=== PATIENT | female | born 1935 | race Caucasian/White ===

== ENCOUNTER 2017-10-29 11:19 | Outpatient (CLI) | payer MEDICARE, OTHER | END 2017-10-29 11:20 | disposition home or self-care (01) | LOC: BICMAMMO 11:19 | PROVIDERS: ATTEND Obstetrics & Gynecology | DX: Z12.31 Encounter for screening mammogram for malignant neoplasm of breast (principal); Z80.3 Family history of malignant neoplasm of breast | CPT/HCPCS: 77063; 77067 ==

== ENCOUNTER 2018-11-04 13:35 | Outpatient (CLI) | payer MEDICARE, OTHER ==
--- NOTE | 2018-11-04 14:25 | MMO ---
Bilateral MAMMO Bilat Diag [facility]. CLINICAL HISTORY: Patient is 83 years old and is seen for diagnostic exam and lump or thickening in the outer region of the left breast. The patient has the following family history of breast cancer: 3 sisters. The patient has no personal history of cancer. The patient has a history of right Excisional Biopsy at age 61 - benign. VIEWS: The views performed were: bilateral craniocaudal with tomosynthesis; bilateral mediolateral oblique with tomosynthesis; bilateral mediolateral with tomosynthesis; and left exaggerated craniocaudal. FILMS COMPARED: The present examination has been compared to prior imaging studies performed at [facility] on 11/28/2015, 10/26/2016, 10/29/2017 and 11/04/2018. MAMMOGRAM FINDINGS: There are scattered fibroglandular densities. There is no radiographic abnormality in the region of the palpable abnormality in the upper-outer region of the left breast. No sonographic abnormality is seen in the region of palpable abnormality. There are no suspicious masses, suspicious calcifications, or new areas of architectural distortion. IMPRESSION: THERE IS NO MAMMOGRAPHIC EVIDENCE OF MALIGNANCY. NO MAMMOGRAPHIC OR SONOGRAPHIC ABNORMALITIES ARE PRESENT TO CORRELATE WITH THE SITE OF PALPABLE CONCERN. THE PATIENT WILL BE REFERRED BACK TO HER CLINICIAN FOR FURTHER CARE. BIOPSY SHOULD NOT BE PRECLUDED BY THE ABSCENCE OF IMAGING FINDINGS, IN THE SETTING OF CLINICAL CONCERN FOR MALIGNANCY. THE FINDINGS AND RECOMMENDATIONS WERE DISCUSSED WITH THE PATIENT PRIOR TO HER LEAVING THE CENTER. A ROUTINE FOLLOW-UP MAMMOGRAM IN 1 YEAR IS RECOMMENDED. THE RESULTS OF THIS EXAM WERE SENT TO THE PATIENT. ACR BI-RADS Category 2 - Benign finding MAMMOGRAPHY NOTE: 1. A negative mammogram report should not delay a biopsy if a dominant of clinically suspicious mass is present. 2. Approximately 10% to 15% of breast cancers are not detected by mammography. 3. Adenosis and dense breasts may obscure an underlying neoplasm. Reported by: DEB HERNANDEZ MD Electonically Signed: [id number]
--- NOTE | 2018-11-04 14:30 | ULT ---
LEFT BREAST DIAGNOSTIC ULTRASOUND: 11/04/18 INDICATION: Palpable abnormality within the upper aspect of the left breast. FINDINGS: No suspicious sonographic abnormality seen within the palpable region of interest in the left breast 2 o'clock position, 15 cm from the nipple. IMPRESSION: No sonographic abnormality seen within the palpable region of the interest in the left breast. POS: OFF
== END 2018-11-04 13:36 | disposition home or self-care (01) ==
LOC: BICMAMMO 13:35
PROVIDERS: ATTEND Obstetrics & Gynecology
DX: N63.20 Unspecified lump in the left breast, unspecified quadrant (principal)
CPT/HCPCS: 76642; 77066; G0279

== ENCOUNTER 2018-11-24 16:23 | Emergency (ER) | payer MEDICARE, OTHER ==
[2018-11-24 16:57] LABS: Bilirubin Negative (Negative); Blood, Urine Negative (Negative); Clarity Clear (Clear); Glucose, Urine (Dipstick) Normal (Negative); Leukocyte Negative Leu/uL (Negative); Nitrite Negative (Negative); Protein, Urine (Dipstick) Negative (Neg-Trace); Urobilinogen Normal mg/dL (Less than 2)
[2018-11-24 17:03] LABS: #Basophils 0.1 thou/uL (0.0-0.2); #Eosinphils 0.3 thou/uL (0.0-0.7); #Lymphocytes 2.4 thou/uL (1.20-3.40); #Monocytes 0.9 thou/uL (0.11-0.59); #Neutrophils 6.9 thou/uL (1.40-6.50); %Basophils 1.1 % (0.0-1.0); %Eosinophils 2.7 % (0.0-10.0); %Lymphocytes 22.7 % (21.0-51.0); %Monocytes 8.2 % (0.0-10.0); %Neutrophils 65.3 % (42.0-75.0); Hemoglobin 14.6 g/dL (12.0-16.0); Mean Corpuscular HGB CONC 33.8 g/dL (32.0-36.0); Mean Corpuscular Hemoglobin 30.1 pg (27.0-31.0); Mean Corpuscular Volume 89.2 fL (78.0-98.0); Mean Platelet Volume 9.7 fL (7.4-10.4); Platelet Count 170 thou/uL (130-400); RBC Distribution Width 11.9 % (11.5-14.5); Red Blood Cell (RBC) Count 4.85 mill/uL (4.20-5.40); White Blood Cell (WBC) Count 10.6 thou/uL (4.8-10.8)
[2018-11-24 17:28] LABS: ALT (SGPT) 23 U/L (8-55); AST (SGOT) 19 U/L (5-34); Albumin 4.1 g/dL (3.4-4.8); Alkaline Phosphatase 104 U/L (40-110); Anion Gap 13 mmol/L (10-20); BUN (Urea Nitrogen) 24 mg/dL (9.8-20.1); Bilirubin, Total 0.3 mg/dL (0.2-1.2); CK (CPK) 36 U/L (29-168); Calc. Creatinine Clearance 0 mL/min (70-130); Calcium 10.2 mg/dL (7.8-10.44); Carbon Dioxide 24 mmol/L (23-31); Chloride 107 mmol/L (98-107); Estimated GFR-MDRD 69; Globulin 2.5 g/dL (2.4-3.5); Glucose 103 mg/dL (83-110); Potassium 4.7 mmol/L (3.5-5.1); Protein, Total 6.6 g/dL (6.0-8.3); Sodium 139 mmol/L (136-145)
--- NOTE | 2018-11-24 20:01 | RAD ---
RADIOGRAPH CHEST 1 VIEW: DATE: 11/24/2018 HISTORY: 83-year-old female with tachycardia and hypertension FINDINGS: The thoracic aorta is tortuous and ectatic. There is no evidence of airspace density, pulmonary edema , cardiomegaly, or pneumothorax. The lateral costophrenic angles are not effaced. IMPRESSION: 1) No acute cardiopulmonary findings. 2) ectasia of thoracic aorta.
--- NOTE | 2018-11-24 20:39 | CT ---
CT BRAIN: Date: 11-24-18 Provided Clinical History: Headache. FINDINGS: The ventricular system appears normal in size and morphology. There is no evidence of intracranial he morrhage or mass effect. Chronic microvascular ischemic changes are seen involving the cerebral white matter. The extracranial soft tissues and osseous structures demonstrate an unremarkable CT appearan ce. IMPRESSION: No evidence for intracranial hemorrhage or mass effect. POS: JOSIAH
[2018-11-24] MEDS ORDERED: Acetaminophen 325 MG Suppository ONE (20:57)
[2018-11-24] MEDS ORDERED: Acetaminophen 325 MG TAB ONE (20:58)
== END 2018-11-24 21:53 | disposition home or self-care (01) ==
LOC: ERS 16:23
DX: G44.209 Tension-type headache, unspecified, not intractable (principal); E05.90 Thyrotoxicosis, unspecified without thyrotoxic crisis or storm; I10 Essential (primary) hypertension; E03.9 Hypothyroidism, unspecified; Z79.82 Long term (current) use of aspirin; Z79.899 Other long term (current) drug therapy
CPT/HCPCS: 36415; 70450; 71045; 80053; 81003; 82550; 84443; 84484; 85025; 85379; 85652; 93005; 96360